=== PATIENT | female | born 1990 | race Asian ===

== ENCOUNTER 2019-02-07 13:41 | Emergency (ER) | payer SELFPAY ==
[2019-02-07] MEDS ORDERED: ONDANSETRON 4 MG TAB.RAPDIS PO ONE (15:06)
[2019-02-07] MEDS ORDERED: NORMAL SALINE 1000 ML 1,000 ML IV ONE (15:06)
--- NOTE | 2019-02-07 15:07 | ER Document Report ---
ED Medical Screen (RME) - General Stated Complaint: VAGINAL BLEEDING/CRAMPING Time Seen by Provider: 02/07/19 15:05 Mode of Arrival: Ambulatory Information source: Patient Notes: Patient presents complaining of generalized abdominal pain for the past week that is localized to the right lower quadrant. Patient states she does have some pain to the right flank area. Patient states she has had some spotting. Patient also reports nausea. I have greeted and performed a rapid initial assessment of this patient. A comprehensive ED assessment and evaluation of the patient, analysis of test results and completion of the medical decision making process will be conducted by additional ED providers. TRAVEL OUTSIDE OF THE [place] IN LAST 30 DAYS: Yes COUNTRY TRAVELED TO/FROM: [place] - Related Data Allergies/Adverse Reactions: No Known Allergies Allergy (Unverified 02/07/19 15:06) Past Medical History - Social History Chew tobacco use (# tins/day): Yes Frequency of alcohol use: None Physical Exam - Vital signs Vitals: Temp Pulse Resp BP 98.4 F 104 H 18 111/74 02/07/19 14:29 02/07/19 14:29 02/07/19 14:29 02/07/19 14:29 - Abdominal Tenderness: Tender - Right lower quadrant tenderness Course - Vital Signs Vital signs: Temp Pulse Resp BP Pulse Ox 98.4 F 104 H 18 111/74 02/07/19 15:03 02/07/19 14:29 02/07/19 15:03 02/07/19 14:29
[2019-02-07 15:58] LABS: ABSOLUTE MONOCYTES (AUTO) 0.4 10^3/uL (0.1-1.4); ABSOLUTE NEUT (AUTO) 6.4 10^3/uL (1.7-8.2); BASOPHILS % (AUTO) 0.2 % (0-2); EOSINOPHILS % (AUTO) 0.5 % (0-6); HEMATOCRIT 40.8 % (36.0-47.0); HEMOGLOBIN 14.2 g/dL (12.0-15.5); LYMPHOCYTES % (AUTO) 13.2 % (13-45); MEAN CORPUSCULAR HGB CONC 34.7 g/dL (32.0-36.0); MEAN CORPUSCULAR VOLUME 98 fl (80-97); MONOCYTES % (AUTO) 5.5 % (3-13); PLATELET COUNT 264 10^3/uL (150-450); RED BLOOD COUNT 4.16 10^6/uL (3.72-5.28); RED CELL DISTRIBUTION WIDTH 12.8 % (11.5-14.0); SEGMENTED NEUTROPHILS % (AUTO) 80.6 % (42-78); TOTAL CELLS COUNTED % (AUTO) 100 %; WHITE BLOOD COUNT 7.9 10^3/uL (4.0-10.5)
[2019-02-07 16:07] LABS: APPEARANCE,URINE SLIGHTLY-CLOUDY; BILIRUBIN,URINE NEGATIVE (NEGATIVE); COLOR,URINE YELLOW; GLUCOSE, URINE NEGATIVE (NEGATIVE); KETONES,URINE TRACE mg/dL (NEGATIVE); LEUKOCYTE ESTERASE,URINE MODERATE (NEGATIVE); NITRITE,URINE NEGATIVE (NEGATIVE); PROTEIN,URINE 30 mg/dL (NEGATIVE); URINE SPECIFIC GRAVITY 1.015; UROBILINOGEN,URINE NEGATIVE mg/dL (<2.0)
[2019-02-07 16:10] LABS: ALBUMIN 4.3 g/dL (3.5-5.0); ALKALINE PHOSPHATASE 67 U/L (38-126); ANION GAP 8 (5-19); ASPARTATE AMINO TRANSFERASE 16 U/L (14-36); BILIRUBIN,DIRECT 0.1 mg/dL (0.0-0.4); BILIRUBIN,TOTAL 0.8 mg/dL (0.2-1.3); BLOOD UREA NITROGEN 14 mg/dL (7-20); CALCIUM 9.3 mg/dL (8.4-10.2); CARBON DIOXIDE 29 mmol/L (22-30); CHLORIDE 101 mmol/L (98-107); GLUCOSE 94 mg/dL (75-110); POTASSIUM 4.5 mmol/L (3.6-5.0); TOTAL PROTEIN 7.6 g/dL (6.3-8.2)
--- NOTE | 2019-02-07 18:08 | RADIOLOGY REPORT (SQ) ---
EXAM DESCRIPTION: U/S NON OB PEL TV W/DOPPLER COMPLETED DATE/TIME: 02/07/2019 5:47 pm REASON FOR STUDY: RLQ pain COMPARISON: None. TECHNIQUE: Dynamic and static grayscale images acquired of the pelvis via transvaginal approach and recorded on PACS. Additional selected color Doppler and spectral images recorded. LIMITATIONS: None. FINDINGS: UTERUS: The uterus is oriented retroverted and it measures 7.2 x 5 x 4.7 cm. The echotext ure of the myometrium is homogeneous. ENDOMETRIAL STRIPE: The endometrium measures 13 mm in thickness CERVIX: The cervix measures 2.3 cm in length. RIGHT OVARY AND DOPPLER: The right ovary measures 3.3 x 2.9 x 2.5 cm and on Doppler there is intact a rterial inflow within the ovarian stroma. There is a complex cystic lesion in the right ovary that m easures 1.9 x 1.9 x 1.3 cm that could represent a corpus luteum cyst. LEFT OVARY AND DOPPLER: The left ovary measures 2.3 x 1.4 x 1.5 cm on on Doppler there is intact luther rial inflow within the ovarian stroma. There is no adnexal mass or free fluid. FREE FLUID: None noted. OTHER: No other finding. IMPRESSION: 1. Normal appearance of the uterus and endometrium. 2. Complex cystic lesion in the right ovary that measures 1.9 x 1.9 x 1.3 cm. The favored differenti al consideration is a corpus luteum cyst. TECHNICAL DOCUMENTATION: JOB ID: [id number] [employer] All Rights Reserved Rev-07/17 Reading location - IP/workstation name: [email or web address]
[2019-02-07] MEDS ORDERED: CEPHALEXIN 500 MG CAPSULE PO ONE (20:38)
[2019-02-07] MEDS ORDERED: IBUPROFEN 600 MG TABLET PO ONE (20:38)
--- NOTE | 2019-02-07 20:42 | ER Document Report ---
ED GI/ - General Chief Complaint: Abdominal Pain Stated Complaint: VAGINAL BLEEDING/CRAMPING Time Seen by Provider: 02/07/19 15:05 Mode of Arrival: Ambulatory Notes: Ms. Tompkins is a 28 yo otherwise healthy female presenting to the ED for right- sided abdominal cramping. Patient states the pain began approximately 1 week ago. She denies any vaginal discharge or foul-smelling odors. She denies any nausea, vomiting or diarrhea. She describes the pain is cramping in nature. Her last menstrual cycle was January 16. She and her boyfriend are trying to get at this point in time. She also endorses urinary frequency without dysuria. She denies any fevers or chills, chest pain or shortness of breath. TRAVEL OUTSIDE OF THE [place] IN LAST 30 DAYS: Yes COUNTRY TRAVELED TO/FROM: [place] - Related Data Allergies/Adverse Reactions: No Known Allergies Allergy (Unverified 02/07/19 15:06) Past Medical History - General Information source: Patient - Social History Smoking Status: Current Every Day Smoker Chew tobacco use (# tins/day): Yes Frequency of alcohol use: None Family History: Reviewed & Not Pertinent Patient has suicidal ideation: No Patient has homicidal ideation: No Past Surgical History: Reports: Hx Section Review of Systems - Review of Systems Constitutional: See HPI EENT: No symptoms reported Cardiovascular: No symptoms reported Respiratory: No symptoms reported Gastrointestinal: No symptoms reported Genitourinary: See HPI Female Genitourinary: See HPI Musculoskeletal: No symptoms reported Skin: No symptoms reported Hematologic/Lymphatic: No symptoms reported Neurological/Psychological: No symptoms reported Physical Exam - Vital signs Vitals: Temp Pulse Resp BP 98.4 F 104 H 18 111/74 02/07/19 14:29 02/07/19 14:29 02/07/19 14:29 02/07/19 14:29 Interpretation: Tachycardic - General General appearance: Appears well, Alert - HEENT Head: Normocephalic, Atraumatic Eyes: Normal Pupils: PERRL - Respiratory Respiratory status: No respiratory distress Chest status: Nontender Breath sounds: Normal Chest palpation: Normal - Cardiovascular Rhythm: Regular Heart sounds: Normal auscultation Murmur: No - Abdominal Inspection: Normal Distension: No distension Bowel sounds: Normal Tenderness: Tender - Right lower quadrant abdominal tenderness without rebound or guarding.. No: Guarding, Rebound Organomegaly: No organomegaly - Back Back: Normal, Nontender - Extremities General upper extremity: Normal inspection, Nontender, Normal color, Normal ROM, Normal temperature General lower extremity: Normal inspection, Nontender, Normal color, Normal ROM, Normal temperature, Normal weight bearing. No: Washington's sign - Neurological Neuro grossly intact: Yes Cognition: Normal Orientation: AAOx4 [place] Coma Scale Eye Opening: Spontaneous Rusty Coma Scale Verbal: Oriented [place] Coma Scale Motor: Obeys Commands Rusty Coma Scale Total: 15 Speech: Normal Motor strength normal: LUE, RUE, LLE, RLE Sensory: Normal - Psychological Associated symptoms: Normal affect, Normal mood - Skin Skin Temperature: Warm Skin Moisture: Dry Skin Color: Normal Course - Re-evaluation Re-evalutation: Patient is generally well-appearing and nontoxic. Initial vitals were notable f or mild tachycardia. Differential diagnosis includes UTI, ovarian cyst, PID (less likely), STI Patient denies any vaginal discharge or foul-smelling odors to suggest STI. She is in a monogamous relationship and having sexual activity with only 1 partner. She endorses primarily right-sided abdominal pain. CBC and CMP were within normal limits. UA shows evidence of UTI with greater than 40 WBCs. Ultrasound does show a complex ovarian cyst on the right. Patient and her significant other are attempting to get . She states she does not normally urinate immediately after sex. 02/07/19 20:45 Patient had been waiting for quite some time upon my evaluation and had her entire blood work, ultrasound and urine resulted. Patient speaks primarily Israeli therefore [employer] was used to translate all the findings. I explained at length to the patient and her significant other at the bedside that she primarily has an ovarian cyst on the right as well as a urinary tract infection. Patient will be given ibuprofen and recommended she continue using ibuprofen for the abdominal cramping in order to help the pain with the ovarian cyst. Patient will also be giving the first dose of Keflex here in the ED prior to discharge and will be provided with a prescription for the remaining course. I answered all the patient's questions at length and explained how to decrease the chances of developing an additional UTI in the future. Patient's significant other is primarily Cambodian speaking and was able to sit in on the conversation both in Cambodian and during the Israeli translation. 02/07/19 20:48 - Vital Signs Vital signs: Temp Pulse Resp BP Pulse Ox 98.2 F 89 16 110/79 100 02/07/19 18:06 02/07/19 18:06 02/07/19 18:06 02/07/19 18:06 02/07/19 18:06 - Laboratory Result Diagrams: 02/07/19 15:38 02/07/19 15:38 Laboratory results interpreted by me: 02/07/19 02/07/19 15:38 15:38 MCV 98 H MCH 34.0 H Seg Neutrophils % 80.6 H Urine Protein 30 H Urine Ketones TRACE H Urine Blood LARGE H Ur Leukocyte Esterase MODERATE H Discharge - Discharge Clinical Impression: Right ovarian cyst UTI (urinary tract infection) Qualifiers: Urinary tract infection type: site unspecified Hematuria presence: with hematuria Qualified Code(s): N39.0 - Urinary tract infection, site not specified; R31.9 - Hematuria, unspecified Condition: Good Disposition: HOME, SELF-CARE Instructions: Urinary Tract Infection ([facility]), Cephalexin ([facility]), Ovarian Cyst ([facility]) Additional Instructions: I would recommend that you take ibuprofen 600 mg or 800 mg every 8 hours as needed for abdominal cramping. I would also recommend that you take the full course of antibiotics as prescribed, even if the urinary frequency improves. It is important to finish the full course of antibiotics. Make sure that you always urinate after having sexual intercourse. It is also important that you wipe from front to back. This will help prevent urinary tract infections from developing in the future. If you are trying to get , I would recommend you download an margret on your phone to help guide you when you are ovulating and therefore most . This will track your monthly periods. If you develop worsening abdominal pain, fever, or any other concerning symptoms, please return to the ED for further evaluation. Prescriptions: Cephalexin Monohydrate [Keflex 500 mg Capsule] 500 mg PO TID 5 Days #15 capsule
[2019-02-07 20:46] VITALS: BP 120/71
== END 2019-02-07 20:46 | disposition home or self-care (01) ==
LOC: ER 13:41
DX: N83.201 Unspecified ovarian cyst, right side (principal); N39.0 Urinary tract infection, site not specified; R31.9 Hematuria, unspecified; F17.200 Nicotine dependence, unspecified, uncomplicated; R00.0 Tachycardia, unspecified
CPT/HCPCS: 99284; 36415; 83690; 84703; 85025; 80053; 81001; 76830; 93976; S0119